=== PATIENT | male | born 1970 | race Caucasian/White ===

== ENCOUNTER → 2017-07-21 | Outpatient (CLI) | payer OTHER ==
[~2017-07-21] MED LIST: METFORMIN HCL1000 MG PO
[2017-07-21 08:06] LABS: ALBUMIN 3.7 gm/dl (3.1-4.5); ALKALINE PHOSPHATASE 53 U/L (45-117); BUN 18 mg/dl (7-24); CHLORIDE 105 mmol/L (98-107); CREATININE 1.16 mg/dL (0.70-1.30); POTASSIUM 4.3 mmol/L (3.5-5.1); SGOT/AST 29 IU/L (3-35); SGPT/ALT 52 U/L (12-78); SODIUM 139 mmol/L (136-145); TOTAL PROTEIN 6.9 gm/dL (6.4-8.2)
== END | disposition home or self-care (01) ==
LOC: LAB 07:25
PROVIDERS: Family Medicine
DX: E74.9 Disorder of carbohydrate metabolism, unspecified (principal); Z77.011 Contact with and (suspected) exposure to lead

== ENCOUNTER → 2017-08-14 | Day surgery (SDC) | payer OTHER ==
[2017-08-10 11:23] LABS: BASO % 0.3 % (0.0-1.0); EOS # 0.2 10*3/uL (0.0-0.4); EOS % 3.8 % (1.0-4.0); HEMOGLOBIN 15.3 g/dl (14.0-18.0); LYMPH # 2.2 10*3/uL (1.3-4.4); LYMPH % 36.9 % (27.0-41.0); MEAN CELL VOLUME 90.4 fl (80.0-94.0); MEAN CORPUSCULAR HGB 30.7 pg (27.0-31.0); MEAN PLATELET VOLUME 9.3 fl (9.6-12.3); MONO # 0.6 10*3/uL (0.1-1.0); MONO % 10.8 % (3.0-9.0); NEUT # 2.8 10*3/uL (2.3-7.9); PLATELET COUNT AUTOMATED 190 10*3/uL (130-400); RED BLOOD COUNT 4.98 10*6/uL (4.50-5.90); RED CELL DISTRI WIDTH 12.3 % (0-14.5); WHITE BLOOD COUNT 5.8 10*3/uL (4.8-10.8)
[2017-08-10 11:26] LABS: BILIRUBIN NEGATIVE (NEGATIVE); BLOOD NEGATIVE (NEGATIVE); CLARITY CLEAR (CLEAR); COLOR YELLOW (YELLOW); GLUCOSE NEGATIVE (NEGATIVE); KETONE NEGATIVE (NEGATIVE); LEUKO ESTERASE NEGATIVE (NEGATIVE); NITRITE NEGATIVE (NEGATIVE); SPECIFIC GRAVITY >= 1.030 (1.005-1.030); UROBILINOGEN 0.2 E.U./dl (0.2-1.0)
[2017-08-10 11:54] LABS: CHLORIDE 106 mmol/L (98-107); POTASSIUM 4.3 mmol/L (3.5-5.1); SODIUM 138 mmol/L (136-145)
[2017-08-10 11:55] LABS: ACT PARTIAL THROMBO TIME 24.2 SECONDS (20.8-31.5)
[2017-08-10 11:58] LABS: BACTERIA TRACE; BUN 19 mg/dl (7-24); CREATININE 1.08 mg/dL (0.70-1.30); EPITHELIAL CELLS 0-2; MUCOUS 2+
[~2017-08-14] VITALS: Ht 172.7 cm; Wt 88.5 kg
[~2017-08-14] MED LIST changes: +NORCO 5-325 TA1 EACH PO
--- NOTE | ~2017-08-14 | O ---
[place], [place] OPERATIVE NOTE NAME: [id number] UNIT #: [id number] ROOM: DOCTOR: JEOVANY CHOUDHURY MD BIRTHDATE: [birth year] DOS: 08/14/2017 PREOPERATIVE DIAGNOSIS: Left inguinal hernia. POSTOPERATIVE DIAGNOSIS: Left inguinal hernia. PROCEDURE: Repair of left inguinal hernia with plug and mesh (large, lite). SURGEON: Jeovany Choudhury MD OUTDOOR GUIDE: MS4. ANESTHESIA: General. INDICATIONS: This is a 47-year-old gentleman with a history of a symptomatic left inguinal hernia who is here for the above-mentioned procedure. The procedure and its complications were explained to the patient in detail preoperatively. Complications that were discussed included but were not limited to bleeding, infection, hematoma/seroma/abscess formation, prolonged postoperative pain, damage to lying vital structures and recurrence. He agreed to proceed. DESCRIPTION OF PROCEDURE: After identifying the patient, the patient was brought to the operating suite and laid in the supine position. After induction of general anesthesia, the parts were painted and draped in the usual sterile fashion. A time-out procedure was called. An incision was marked parallel to the left inguinal ligament. The skin and the subcutaneous tissue were incised in the line of the incision. The external oblique aponeurosis was opened in the line of its fibers. The cord structures were encircled with the help of a Jacque drain and from the surrounding structures. There was found to be a defect in the posterior wall and also a small indirect sac that could be seen emanating from the region of the internal ring. At this point, the sac was out from the cord structures and was allowed to retract back into the abdominal cavity. 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 At this point, a large plug was placed in the internal ring and sutured to the overlying conjoined tendon for stability. Mesh was brought in place and was cut to size and was sutured to the upturned part of the inguinal ligament inferiorly and to the conjoined tendon superiorly with the help of 3-0 Prolene in running fashion. Thereafter, the external oblique aponeurosis was approximated with the help of 4-0 Vicryl in a running fashion. The subcutaneous tissue was approximated with the help of 3-0 Vicryl in a running fashion and the edges of the skin were approximated with the help of 4-0 Vicryl in a subcuticular running fashion after the edges of the skin were infiltrated with 1% plain lidocaine. Dressing was placed. The patient was extubated uneventfully and brought back to the recovery room in stable fashion. There were no complications. Dr. Jeovany Choudhury, the attending surgeon, was present throughout the operating case. [place], [place] OPERATIVE NOTE NAME: LUBA PANDA III UNIT #: [id number] ROOM: DOCTOR: JEOVANY CHOUDHURY MD BIRTHDATE: [birth year] Jeovany Choudhury MD CM:OPRECORD:OPERATIVE NOTE [id number] JEOVANY CHOUDHURY MD 08/14/17 0934 interface
[2017-08-14 07:30] VITALS: BP 114/73
[2017-08-14 09:18] VITALS: BP 119/55
[2017-08-14 09:30] VITALS: BP 95/51
[2017-08-14 09:45] VITALS: BP 95/42
[2017-08-14 10:00] VITALS: BP 100/48
[2017-08-14 10:50] VITALS: BP 108/65
== END | disposition home or self-care (01) ==
LOC: SDC 08-10 10:15
PROVIDERS: Surgery
DX: K40.90 Unilateral inguinal hernia, without obstruction or gangrene, not specified as recurrent (principal); E11.9 Type 2 diabetes mellitus without complications; K21.9 Gastro-esophageal reflux disease without esophagitis; Z98.890 Other specified postprocedural states; Z79.899 Other long term (current) drug therapy

== ENCOUNTER → 2018-05-14 | Outpatient (CLI) | payer OTHER ==
[2018-05-14 07:51] LABS: HEMATOCRIT 45.2 % (42.0-52.0); HEMOGLOBIN 15.7 g/dl (14.0-18.0); MEAN CELL VOLUME 90.6 fl (80.0-94.0); MEAN CORPUSCULAR HGB 31.5 pg (27.0-31.0); MEAN CORPUSCULAR HGB CONC 34.7 g/dl (33.0-37.0); MEAN PLATELET VOLUME 9.1 fl (9.6-12.3); RED BLOOD COUNT 4.99 10*6/uL (4.50-5.90); WHITE BLOOD COUNT 6.1 10*3/uL (4.8-10.8)
[2018-05-14 08:30] LABS: ALBUMIN 3.8 gm/dl (3.1-4.5); ALKALINE PHOSPHATASE 58 U/L (45-117); BUN 15 mg/dl (7-24); CHLORIDE 107 mmol/L (98-107); CHOLESTEROL 167 mg/dL (<200); HDL CHOLESTEROL 42 mg/dl (40-60); LDL CHOLESTEROL 102 mg/dL (9-159); POTASSIUM 4.3 mmol/L (3.5-5.1); SGOT/AST 39 IU/L (3-35); SGPT/ALT 64 U/L (12-78); SODIUM 141 mmol/L (136-145); TOTAL PROTEIN 7.5 gm/dL (6.4-8.2); TRIGLYCERIDES 114 mg/dl (<150); VLDL CHOLESTEROL 23 mg/dL (6-40)
== END | disposition home or self-care (01) ==
LOC: LAB 07:25
PROVIDERS: Family Medicine
DX: E74.9 Disorder of carbohydrate metabolism, unspecified (principal); E78.00 Pure hypercholesterolemia, unspecified; R53.83 Other fatigue

== ENCOUNTER → 2018-12-08 | Outpatient (CLI) | payer OTHER ==
[~2018-12-08] MED LIST changes: +CEFADROXIL500 M1 PO
== END | disposition home or self-care (01) ==
LOC: RAD 09:58
DX: K59.00 Constipation, unspecified (principal); R10.30 Lower abdominal pain, unspecified

== ENCOUNTER → 2019-05-05 | Outpatient (CLI) | payer OTHER | END | disposition home or self-care (01) | LOC: RAD 11:42 | DX: R05 Cough (principal) ==

== ENCOUNTER → 2019-06-13 | Outpatient (CLI) | payer OTHER ==
[2019-06-13 09:02] LABS: HEMATOCRIT 45.6 % (42.0-52.0); MEAN CELL VOLUME 92.7 fl (80.0-94.0); MEAN CORPUSCULAR HGB 30.5 pg (27.0-31.0); MEAN CORPUSCULAR HGB CONC 32.9 g/dl (33.0-37.0); MEAN PLATELET VOLUME 9.6 fl (9.6-12.3); RED BLOOD COUNT 4.92 10*6/uL (4.50-5.90); RED CELL DISTRI WIDTH 12.1 % (0-14.5); WHITE BLOOD COUNT 5.8 10*3/uL (4.8-10.8)
[2019-06-13 09:29] LABS: ALBUMIN 3.8 gm/dl (3.1-4.5); ALKALINE PHOSPHATASE 56 U/L (45-117); BUN 21 mg/dl (7-24); CHLORIDE 109 mmol/L (98-107); CHOLESTEROL 183 mg/dL (<200); CREATININE 1.09 mg/dL (0.70-1.30); HDL CHOLESTEROL 46 mg/dl (40-60); LDL CHOLESTEROL 121 mg/dL (9-159); POTASSIUM 4.2 mmol/L (3.5-5.1); SGOT/AST 26 IU/L (3-35); SGPT/ALT 54 U/L (12-78); SODIUM 143 mmol/L (136-145); TOTAL PROTEIN 7.1 gm/dL (6.4-8.2); TRIGLYCERIDES 79 mg/dl (<150); VLDL CHOLESTEROL 16 mg/dL (6-40)
== END | disposition home or self-care (01) ==
LOC: LAB 07:43
PROVIDERS: Family Medicine
DX: E55.9 Vitamin D deficiency, unspecified (principal); K21.9 Gastro-esophageal reflux disease without esophagitis; R73.03 Prediabetes

== ENCOUNTER → 2020-04-12 | Outpatient (CLI) | payer OTHER | END | disposition home or self-care (01) | LOC: COVID19 10:33 | PROVIDERS: ATTEND Family Medicine | DX: Z20.828 Contact with and (suspected) exposure to other viral communicable diseases (principal) ==

== ENCOUNTER → 2024-10-25 | Outpatient (CLI) | payer OTHER | END | disposition home or self-care (01) | LOC: US 07:54 | PROVIDERS: ATTEND Family Medicine | DX: K76.0 Fatty (change of) liver, not elsewhere classified (principal); R10.11 Right upper quadrant pain; R74.01 Elevation of levels of liver transaminase levels ==

== ENCOUNTER → 2024-11-09 | Outpatient (CLI) | payer OTHER ==
[2024-11-09 08:59] LABS: HEMATOCRIT 45.7 % (42.0-52.0); MEAN CORPUSCULAR HGB 31.7 pg (27.0-31.0); MEAN CORPUSCULAR HGB CONC 33.7 g/dl (33.0-37.0); MEAN PLATELET VOLUME 9.2 fl (9.6-12.3); RED BLOOD COUNT 4.86 10*6/uL (4.50-5.90); RED CELL DISTRI WIDTH 12.2 % (0-14.5); WHITE BLOOD COUNT 5.8 10*3/uL (4.8-10.8)
[2024-11-09 09:31] LABS: ALKALINE PHOSPHATASE 60 U/L (46-116); BUN 16 mg/dl (9-23); CHLORIDE 103 mmol/L (98-107); FREE T4 1.18 ng/dl (0.89-1.76); POTASSIUM 4.2 mmol/L (3.4-5.1); SGPT/ALT 76 U/L (5-49)
[2024-11-10 05:06] LABS: HBsAG SCREEN Negative (Negative); HCV Ab Non Reactive (Non Reactive); HEP B CORE Ab, IgM Negative (Negative)
== END | disposition home or self-care (01) ==
LOC: LAB 08:37
PROVIDERS: ATTEND Family Medicine
DX: E74.9 Disorder of carbohydrate metabolism, unspecified (principal); R53.83 Other fatigue; R41.0 Disorientation, unspecified; R74.01 Elevation of levels of liver transaminase levels